=== PATIENT | male | born 1965 | race Caucasian/White ===

== ENCOUNTER 2018-01-11 13:11 | Observation (INO) | payer OTHER ==
[2018-01-11] MEDS ORDERED: ACETAMINOPHEN 500 MG TAB PO PRN (14:00)
[2018-01-11] MEDS ORDERED: ONDANSETRON 4 MG/2 ML VIAL IV PRN (14:00)
--- NOTE | 2018-01-11 15:53 | ECHO ---
HEIGHT: 5 ft 11 in WEIGHT: 235 lb 0 oz DATE OF STUDY: 01/11/[address]: Ashely Méndez MD 2-DIMENSIONAL: YES M.MODE: YES DOPPLER: YES COLOR FLOW: YES TDS: NO PORTABLE: NO DEFINITY: NO BUBBLE STUDY: NO DIAGNOSIS: CHEST PRESSURE CARDIAC HISTORY: CATHERIZATION: NO SURGERY: NO PROSTHETIC VALVE: NO PACEMAKER: NO MEASUREMENTS (cm) DIASTOLIC (NORMALS) SYSTOLIC (NORMALS) IVSd 1.0 (0.6-1.2) LA Diam 3.8 (1.9-4.0) LVEF 73% LVIDd 4.3 (3.5-5.7) LVIDs 2.5 (2.0-3.5) %FS 41% LVPWd 1.0 (0.6-1.2) Ao Diam 2.8 (2.0-3.7) 2 DIMENSIONAL ASSESSMENT: RIGHT ATRIUM: NORMAL LEFT ATRIUM: NORMAL RIGHT VENTRICLE: NORMAL LEFT VENTRICLE: NORMAL TRICUSPID VALVE: NORMAL MITRAL VALVE: NORMAL PULMONIC VALVE: NORMAL AORTIC VALVE: NORMAL PERICARDIAL EFFUSION: NONE AORTIC ROOT: NORMAL LEFT VENTRICULAR WALL MOTION: NORMAL. DOPPLER/COLOR FLOW: NORMAL. COMMENTS: NORMAL 2D ECHO WITH DOPPLER. TECHNOLOGIST: SOPHIE NOVA
--- NOTE | 2018-01-11 16:07 | P.HP ---
Certification for Inpatient Patient admitted to: Observation With expected LOS: <2 Midnights Practitioner: I am a practitioner with admitting privileges, knowledge of patient current condition, hospital course, and medical plan of care. Services: Services provided to patient in accordance with Admission requirements found in Title 42 Section 412.3 of the Code of Federal Regulations Patient History Date of Service: 01/11/18 Primary Care Provider: Dr. Aquino Reason for admission: Chest pressure History of Present Illness: This is a 62-year-old male with history of hypertension, hyperlipidemia who presents with complaints of chest pressure. Patient reports that this pressure started this morning around 8 o'clock, it's located in the sternal area without any radiation. There are no alleviating or exacerbating factors. He does take aspirin 81 mg every day and states that this did not relieve the pressure. He states that this was associated with mild shortness of breath, which has now resolved. He reports that this is the 1st time he has had such symptoms. At the time of my exam, the chest pressure had been unchanged but patient was not in any acute distress and he was alert oriented x3. He denied any nausea, vomiting, excessive sweating, numbness/tingling, headache, vision changes, dizziness, presyncope/syncopal episode, abdominal pain for, lower extremity swelling, fever or chills. Patient was sent over from [facility] Allergies No Known Allergies Allergy (Verified 01/11/18 13:50) Home medications list reviewed: Yes Home Medications: Aspirin [Aspirin EC 81 MG] 81 mg PO DAILY 01/11/18 Losartan Potassium 25 mg PO DAILY 01/11/18 Pravastatin Sodium 20 mg PO DAILY 01/11/18 - Past Medical/Surgical History Has patient received pneumonia vaccine in the past: No Diabetic: No -: htn -: hyperlipidemia -: sleep apnea -: R knee ligament repair -: R rotator cuff repair - Social History Smoking Status: Never smoker Alcohol use: No CD- Drugs: No Caffeine use: No Place of Residence: Home Review of Systems General: Unremarkable Eyes: Unremarkable ENT: Unremarkable Respiratory: As per HPI Cardiovascular: As per HPI Gastrointestinal: Unremarkable Genitourinary: Unremarkable Musculoskeletal: Unremarkable Integumentary: Unremarkable Neurological: Unremarkable Lymphatics: Unremarkable Physical Examination - Vital Signs Temperature: 97.4 F Blood Pressure: 140/92 Pulse: 77 Respirations: 18 Pulse Ox (%): 98 - Physical Exam General: Alert, In no apparent distress, Oriented x3, Obese HEENT: Atraumatic, PERRLA, Mucous membr. moist/pink, EOMI, Sclerae nonicteric Neck: Supple, 2+ carotid pulse no bruit, No LAD, Without JVD or thyroid abnormality Respiratory: Clear to auscultation bilaterally, Normal air movement Cardiovascular: Regular rate/rhythm, Normal S1 S2 Gastrointestinal: Normal bowel sounds, No tenderness Musculoskeletal: No tenderness Integumentary: No rashes Neurological: Normal speech, Normal strength at 5/5 x4 extr, Normal tone, Normal affect Assessment and Plan - Plan This is a 52-year-old male with: -Chest pressure: Less likely to be of cardiac etiology Risk factors include obesity, hyperlipidemia and hypertension. Troponins: 1st set negative at [place]. Trend q.[address] chest negative for any acute abnormalities. EKG with out any specific changes. Echo ordered, pending Continue aspirin. Nitro p.r.n. Oxygen as needed. Pain control as needed with IV morphine. May consider cardiology consultation if symptoms not improved. Though more likely he may be able to follow up outpatient with Cardiology. - Essential Hypertension, stable. Continue home losartan 25 mg daily. Will continue to monitor blood pressure - hyperlipidemia: Stable. Continue home pravastatin 20 mg daily DVT prophylaxis: Lovenox GI prophylaxis: Not needed Diet: Heart healthy Disposition: Admit to acute, tele monitoring. Pending symptomatic improvement. Likely discharge tomorrow - Advance Directives Does patient have a Living Will: No Does patient have a Durable POA for Healthcare: No
[2018-01-11] MEDS ORDERED: ENOXAPARIN 40 MG/0.4 ML SQ SCH (21:00)
[2018-01-11] MEDS ORDERED: ATORVASTATIN 10 MG TAB PO SCH (21:00)
[2018-01-12 01:58] LABS: Absolute Lymphocytes (CBC) 2.8 K/uL (0.7-4.9); Absolute Monocytes 0.7 K/uL (0.1-1.3); Absolute Neutrophil 3.3 K/uL (1.8-8.0); Basophils % 0.7 % (0-1.3); Eosinophils % 2.5 % (0-4.4); Hematocrit 46.7 % (39.6-49.0); Lymphocytes % 39.8 % (15.3-44.8); MCH 30.9 pg (27.0-35.0); MCV 87.9 fL (80-100); MPV 8.2 fL (7.6-11.3); Monocytes % 10.4 % (3.3-12.3); RBC Red Blood Cell Count 5.31 M/uL (4.33-5.43)
[2018-01-12 02:18] LABS: Albumin 3.7 g/dL (3.4-5.0); Bilirubin Total 0.3 mg/dL (0.2-1.0); Magnesium 2.3 mg/dL (1.8-2.4); Phosphorus 3.9 mg/dL (2.5-4.9); Potassium 4.2 mmol/L (3.5-5.1); Protein, Total 7.2 g/dL (6.4-8.2)
[2018-01-12] MEDS ORDERED: ASPIRIN EC 81 MG TAB PO SCH (09:00)
[2018-01-12] MEDS ORDERED: LOSARTAN POTASSIUM 50 MG TABLET PO SCH (09:00)
--- NOTE | 2018-01-12 13:17 | P.SSS ---
Patient History Date of Service: 01/12/18 Primary Care Provider: Dr. Aquino Reason for admission: Chest pressure History of Present Illness: This is a 62-year-old male with history of hypertension, hyperlipidemia who presents with complaints of chest pressure. Patient reports that this pressure started this morning around 8 o'clock, it's located in the sternal area without any radiation. There are no alleviating or exacerbating factors. He does take aspirin 81 mg every day and states that this did not relieve the pressure. He states that this was associated with mild shortness of breath, which has now resolved. He reports that this is the 1st time he has had such symptoms. At the time of my exam, the chest pressure had been unchanged but patient was not in any acute distress and he was alert oriented x3. He denied any nausea, vomiting, excessive sweating, numbness/tingling, headache, vision changes, dizziness, presyncope/syncopal episode, abdominal pain for, lower extremity swelling, fever or chills. Patient was sent over from [facility] Allergies No Known Allergies Allergy (Verified 01/11/18 13:50) Home Medications: Aspirin [Aspirin EC 81 MG] 81 mg PO DAILY 01/11/18 Losartan Potassium 25 mg PO DAILY 01/11/18 Pravastatin Sodium 20 mg PO DAILY 01/11/18 Pantoprazole [Protonix Tab] 40 mg PO DAILY #30 tab 01/12/18 - Past Medical/Surgical History Has patient received pneumonia vaccine in the past: No Diabetic: No -: htn -: hyperlipidemia -: sleep apnea -: R knee ligament repair -: R rotator cuff repair - Social History Smoking Status: Never smoker Alcohol use: No CD- Drugs: No Caffeine use: No Place of Residence: Home Review of Systems As noted Physical Examination - Vital Signs Temperature: 98.3 F Blood Pressure: 137/70 Pulse: 69 Respirations: 18 Pulse Ox (%): 96 - Physical Exam General: Alert, In no apparent distress, Oriented x3 HEENT: Atraumatic, PERRLA, Mucous membr. moist/pink, EOMI, Sclerae nonicteric Neck: Supple, 2+ carotid pulse no bruit, No LAD, Without JVD or thyroid abnormality Respiratory: Clear to auscultation bilaterally, Normal air movement Cardiovascular: Regular rate/rhythm, Normal S1 S2 Gastrointestinal: Normal bowel sounds, No tenderness Musculoskeletal: No tenderness Integumentary: No rashes Neurological: Normal gait, Normal speech, Normal strength at 5/5 x4 extr, Normal tone, Normal affect Lymphatics: No axilla or inguinal lymphadenopathy - Studies Laboratory Data (last 24 hrs) 01/12/18 01:37: Sodium 139, Potassium 4.2, BUN 18, Creatinine 1.10, Glucose 91, Phosphorus 3.9, Magnesium 2.3, Total Bilirubin 0.3, AST 27, ALT 42, Alkaline Phosphatase 46 01/12/18 01:37: WBC 7.1, Hgb 16.4, Hct 46.7, Plt Count 236 01/12/18 01:37: Troponin I < 0.02 01/11/18 17:57: Troponin I < 0.02 Treatment Summary: Patient was admitted for observation for chest pain. Troponins were negative x3 (1 negative at [place]). Echo done, normal with 73% ejection fraction. EKG without any specific changes. Overnight telemetry monitoring negative review events. Symptomatically, patient states symptoms have resolved. at the time of discharge, patient alert oriented x3, in no acute distress, vitals stable. He does see Dr. Seymour, cardiology outpatient. Patient was instructed to follow up with primary care physician in 1 week and the spring upholsterer 1-2 weeks. He already has appointment scheduled with Cardiology in the upcoming month. He will be discharged with a prescription for Protonix. No other medication changes made during this hospitalization. Patient verbalized understanding of all instructions and all questions were answered. - Disposition Discharge Date: 01/12/18 Disposition: ROUTINE DISCHARGE Condition: GOOD Patient Discharge Instructions: Please follow up with primary care physician 1 week. Please follow up with cardiology in 1-2 weeks. Prescription for Protonix has been sent to pharmacy. Diet: AHA Activity: Ad flori Physician Review: Patient Assessed, Agree with Above Assessment and Plan Time Spent Managing Pts Care (In Minutes): 40
== END 2018-01-12 14:00 | disposition home or self-care (01) ==
LOC: 4TH 13:12
PROVIDERS: ADMIT Family Medicine; ATTEND Family Medicine
DX: R07.89 Other chest pain (principal); I10 Essential (primary) hypertension; E78.5 Hyperlipidemia, unspecified; G47.30 Sleep apnea, unspecified
CPT/HCPCS: 36415; 80053; 83735; 84100; 84484; 85025; 93306; 94760; G0378; J1650